=== PATIENT | female | born 1935 | race Caucasian/White ===

== ENCOUNTER 2017-04-08 19:52 | Observation (INO) | payer OTHER ==
[~2017-04-08] VITALS: Ht 160 cm; Wt 70.0 kg
[2017-04-08 20:24] LABS: HEMATOCRIT 36.6 % (36.0-46.0); MCHC 33.6 G/DL (30.0-36.0); MCV 89.3 FL (83-99); MEAN PLAT.VOLUME 10.4 uM^3 (9.5-12.4); PLATELET COUNT 200 K/uL (156-360); RBC DIS.WIDTH-CV 11.8 % (11.8-14.6); WHITE BLOOD COUNT 9.7 K/uL (4.1-10.2)
[2017-04-08 20:36] LABS: CHLORIDE 106 mEq/L (99-109); POTASSIUM 4.1 mEq/L (3.7-5.4); SODIUM 144 mEq/L (136-147)
[2017-04-08 20:37] LABS: GLUCOSE 130 mg/dL (70-99)
[2017-04-08 20:39] LABS: ANION GAP 9 MEQ/L (2-14)
[2017-04-08 20:42] LABS: UREA NITROGEN (BUN) 19 mg/dL (9-23)
[2017-04-08 20:45] LABS: TROP-I INTERPRETATION NEGATIVE; TROPONIN-I < 0.01 ng/mL (0.0-0.30)
[2017-04-08 20:54] LABS: GFR ESTIMATE (CALCULATED) 42 mL/min/
[2017-04-08] MEDS ORDERED: MONTELUKAST SOD10 MG PO (22:40)
[2017-04-08] MEDS ORDERED: HYDROCHLOROTHIA25 MG PO (22:40)
[2017-04-08] MEDS ORDERED: CARVEDILOL6.25 MG PO (22:41)
[2017-04-08] MEDS ORDERED: ROSUVASTATIN CAL5 MG PO (22:41)
[2017-04-08] MEDS ORDERED: PRAVASTATIN SOD80 MG PO (22:42)
[2017-04-08] MEDS ORDERED: LISINOPRIL20 MG PO (22:42)
[2017-04-08] MEDS ORDERED: NITROGLYCERIN0.4 MG SL (22:43)
[2017-04-08] MEDS ORDERED: ZANTAC150 MG PO (22:46)
[2017-04-08] MEDS ORDERED: LO-DOSE ASPIRIN81 M2 PO (22:46)
[2017-04-08] MEDS ORDERED: ZYRTEC10 M3 PO (22:47)
[2017-04-08] MEDS ORDERED: VITAMIN D31000 UNI2 PO (22:49)
[2017-04-08] MEDS ORDERED: METAMUCIL0.4 GM PO (22:51)
[2017-04-08] MEDS ORDERED: TYLENOL EXTRA500 MG PO (22:55)
[2017-04-09 00:25] VITALS: BP 160/78
[2017-04-09 04:16] VITALS: BP 126/57
[2017-04-09 08:19] VITALS: BP 143/61
[2017-04-09 09:19] LABS: HDL CHOLESTEROL 37 MG/DL (Desirable>=50); LDL CHOLESTEROL 68 mg/dL (Desirable<100); NON-HDL CHOLESTEROL 100 mg/dL (Desirable<160); TOTAL CHOLESTEROL 137 mg/dL (Desirable<200); TRIGLYCERIDES 162 MG/DL (Normal: <150)
[2017-04-09 09:24] LABS: TROP-I INTERPRETATION NEGATIVE; TROPONIN-I 0.02 ng/mL (0.0-0.30)
[2017-04-09 10:03] LABS: INTACT PARATHYROID HORMONE 75 pg/mL (10-69)
[2017-04-09 11:35] VITALS: BP 142/64
[2017-04-09] MEDS ORDERED: FLEXERIL5 MG PO (13:52)
== END 2017-04-09 15:36 | disposition home or self-care (01) ==
LOC: EME 19:52 → RME 19:52 → EDOF 22:44 → ENRESERV 22:45 → EDOF 04-09 00:05 → 5WEST 04-09 00:15
PROVIDERS: Physician Assistant Medical
DX: M25.512 Pain in left shoulder (principal); M54.2 Cervicalgia; I16.0 Hypertensive urgency; I25.10 Atherosclerotic heart disease of native coronary artery without angina pectoris; Z95.5 Presence of coronary angioplasty implant and graft; I25.2 Old myocardial infarction; I10 Essential (primary) hypertension; E78.5 Hyperlipidemia, unspecified; K91.89 Other postprocedural complications and disorders of digestive system; K59.1 Functional diarrhea; J45.909 Unspecified asthma, uncomplicated; Z85.3 Personal history of malignant neoplasm of breast; Z87.19 Personal history of other diseases of the digestive system; Z79.82 Long term (current) use of aspirin; Z90.49 Acquired absence of other specified parts of digestive tract; Z82.49 Family history of ischemic heart disease and other diseases of the circulatory system; Z80.3 Family history of malignant neoplasm of breast; Z80.0 Family history of malignant neoplasm of digestive organs; Z82.5 Family history of asthma and other chronic lower respiratory diseases; Z82.0 Family history of epilepsy and other diseases of the nervous system; Z88.1 Allergy status to other antibiotic agents; Z88.2 Allergy status to sulfonamides; Z88.0 Allergy status to penicillin
CPT/HCPCS: 71020; 80048; 80061; 83970; 84484; 85027; 93005; G0378; J1644; J7030